=== PATIENT | female | born 1980 | race Caucasian/White ===

== ENCOUNTER → 2016-11-29 | Outpatient (CLI) | payer BC ==
[~2016-11-29] MED LIST: ISOVUE-370 76% 100ML VIAL (Q9967) As Ordered ONE
--- NOTE | 2016-11-29 14:44 | REP ---
Hysterosalpingogram: Infusion of iodinated radiopaque contrast into the endometrial canal and fallopian tubes is accomplished through a balloon-tipped endometrial catheter by the heel cementer michael watson. The endometrial canal has a septate configuration. The fallopian tubes are patent and normal appearing bilaterally. There is bilateral intraperitoneal spillage of the contrast. Impression: Septate configuration of the endometrial canal. Otherwise, normal hysterosalpingogram. Fluoroscopic exposure time is 38 seconds. Fluoroscopic images are performed with last image hold technology producing no additional radiation. Signed by Mohan Krishnamurthy MD 11/29/2016 02:35 P
== END ==
LOC: M RADPRO 12:02
PROVIDERS: ATTEND Obstetrics & Gynecology
DX: N97.9 Female infertility, unspecified (principal)
CPT/HCPCS: 58340; 74740; Q9967

== ENCOUNTER → 2017-01-12 | Outpatient (REF) | payer BC | LOC: M LAB REF 16:49 | PROVIDERS: ATTEND Obstetrics & Gynecology | DX: O36.80X0 Pregnancy with inconclusive fetal viability, not applicable or unspecified (principal); Z36 Encounter for antenatal screening of mother; Z3A.00 Weeks of gestation of pregnancy not specified ==